=== PATIENT | female | born 2005 | race Caucasian/White ===

== ENCOUNTER 2023-10-06 23:22 | Emergency (ER) | payer BC, SELFPAY ==
--- NOTE | 2023-10-06 | ECG_ITS ---
Test Reason : TACHY Blood Pressure : / mmHG Vent. Rate : 153 BPM Atrial Rate : 153 BPM P-R Int : 114 ms QRS Dur : 094 ms QT Int : 326 ms P-R-T Axes : 041 097 022 degrees QTc Int : 520 ms Sinus tachycardia Rightward axis Nonspecific ST abnormality Abnormal ECG No previous ECGs available Referred By: Generic ED Physician Electronically Signed By:NICOLAS QUICK MD
[2023-10-06 23:23] VITALS: BP 130/89; PULSE 158; RESP 18; TEMP 37.6; O2SAT 97; BMI 29.0
[2023-10-06 23:58] VITALS: BP 133/85; PULSE 140; RESP 18; TEMP 37.2; O2SAT 99
[2023-10-07 00:05] LABS: Monotest Negative (Negative)
--- NOTE | 2023-10-07 00:14 | PC.NURSE ---
Pt aox4 resting at the bedside. Reporting sore throat, chills, and body aches. Sinus tach on monitor with HR as high as 150bpm. Otherwise VSS. Breaths are even regular and unlabored. Skin warm pink and dry. 20G IV line placed on the L AC. Pending lab results and physician eval. Call schrader placed within reach.
[2023-10-07 00:18] LABS: Influenza A PCR NEGATIVE (Negative); Influenza B PCR NEGATIVE (Negative); Resp Syncy Virus RNA Qual PCR NEGATIVE (Negative); SARS COV2 PCR INHOUSE NEGATIVE (Negative)
[2023-10-07 00:28] LABS: IDNOW Serial# 6674DD1D; Strep A Nucleic Acid Negative (Negative)
--- NOTE | 2023-10-07 00:52 | ED_ITS ---
HPI - General Adult General Chief complaint: General Medical Stated complaint: tonsils swollen, diff breathing Time Seen by Provider: 10/07/23 00:16 Source: patient, RN notes reviewed and old records reviewed Mode of arrival: ambulatory Limitations: no limitations History of Present Illness HPI narrative: 18-year-old female presents for evaluation of a sore throat since yesterday. She reports she went to urgent care and was negative for strep, COVID, the flu. She reports fevers today but is unsure exactly how high. She is able to swallow but has painful swallowing. She states that at baseline she has large tonsils Reports that she feels like she has swollen nodes in the right side of her neck Denies any cough, shortness of breath Related Data Previous Rx's Medication Instructions Recorded amoxicillin 875 mg-potassium 1 tab PO Q12H 10 days #20 tabs 10/07/23 clavulanate 125 mg tablet Allergies Allergy/AdvReac Type Severity Reaction Status Date / Time No Known Allergies Allergy Verified 10/06/23 23:33 Review of Systems Constitutional: Constitutional: Denies body ache(s), Reports chills and Reports fever(s) ENT: Reports sore throat Cardiovascular: Cardiovascular: Denies chest pain and Denies dyspnea Respiratory: Respiratory: Denies cough and Denies dyspnea Gastrointestinal: Gastrointestinal: Denies abdominal pain Musculoskeletal: Musculoskeletal: Denies back pain Integumentary/Breasts: Skin/Breast: Denies rash PMFSH Social History Social History Advance Directives: No Advance Directives Information Provided: No Physical Exam ED Vital Signs: Vital Signs - 24 hr 10/06/23 23:23 10/06/23 23:58 Temperature 99.7 F 99.0 F Pulse Rate 158 H 140 H Respiratory Rate 18 18 Blood Pressure 130/89 133/85 Pulse Oximetry 97 99 Oxygen Delivery Method Room Air Room Air BMI result Body Mass Index 29.0 Const General: healthy appearing, comfortable, no acute distress, alert and awake Nutritional Appearance: well nourished Orientation/consciousness: patient oriented x3 HENMT Other: Erythematous oropharynx with bilateral tonsillar hypertrophy and whitish exudates. No evidence of peritonsillar abscess Head: Yes normocephalic and Yes atraumatic Eyes Eyelids: Yes eyelids normal Conjunctivae: conjunctivae normal Sclerae: sclerae normal Corneas: corneas normal Pupils: Equal, round and reactive pupils present EOM: EOMs intact bilaterally Neck Neck: Yes full ROM Resp Effort & Inspection: normal respiratory effort, able to speak in complete sentences and not labored Skin General skin exam: elasticity normal Neuro General: patient oriented x3 Cranial nerves: Yes Equal, round and reactive pupils present and Yes Bilaterally intact EOM present Cognition (Neuro): normal cognition Extrem Other: Moving all extremities well without any obvious deformities Course Reevaluation(s) Reevaluation #1: Patient's heart rate down to 113 after IV fluids. Time: 01:34 Medications Administered Discontinued Medications Generic Name Dose Route Start Last Admin Trade Name Freq PRN Reason Stop Dose Admin Amoxicillin/Clavulanate Potassium 875 mg 10/07/23 00:45 10/07/23 00:53 Amoxicillin/Potassium Clav 875 Mg Tablet PO 10/07/23 00:46 875 mg ONCE ONE Administration Dexamethasone Sodium Phosphate 10 mg 10/07/23 00:27 10/07/23 00:53 Dexamethasone Sod Phosphate 10 Mg/Ml Vial IVPUSH 10/07/23 00:28 10 mg ONCE ONE Administration Sodium Chloride 1,000 mls @ 999 mls/hr 10/07/23 00:30 10/07/23 00:53 Ns IV 10/07/23 01:30 999 mls/hr .Q1H1M TIMOTHY Administration Medical Decision Making Medical Decision Making [facility] Narrative: 18-year-old female presents for evaluation of a sore throat. She clinically has exudative pharyngitis. Her viral swabs, mono screen and strep throat swabs were all negative. However given the degree of tonsillar hypertrophy will still treat with Augmentin. She was given a dose of dexamethasone. She was tachycardic as high as 150 on arrival. This improved with IV fluids. She reports taking ibuprofen 600 mg at 9:30 p.m. therefore we held any further NSAIDs Differential Diagnosis Differential Diagnoses: The differential diagnosis associated with the presentation includes Exudative pharyngitis Mononucleosis Strep pharyngitis Upper respiratory infection Tonsillar abscess Lab Data Labs: Lab Results 10/06/23 10/06/23 10/07/23 Range/Units 23:37 23:45 00:03 Monoscreen Negative (Negative) Influenza Type A (PCR) NEGATIVE (Negative) Influenza Type B (PCR) NEGATIVE (Negative) RSV RNA Qual (PCR) NEGATIVE (Negative) SARS-CoV-2 RNA (RT-PCR) NEGATIVE (Negative) S. pyogenes GrpA ERNIE Negative (Negative) Discharge Plan Discharge Clinical Impression: Exudative pharyngitis Patient Disposition: Home, Self-Care Instructions: Pharyngitis (ED) Additional Instructions: Take Augmentin twice daily for the next 10 days Continue to use ibuprofen/Tylenol for fevers, sore throat Drink lots of fluids Follow-up with your primary doctor and return for new or worsening symptoms Prescriptions: New amoxicillin-pot clavulanate 875-125 mg tablet 1 tab PO Q12H 10 Days Qty: 20 0RF Stand Alone Forms: Work/School Release
[2023-10-07] MEDS: 0.9 % Sodium Chloride 1,000 ML 999 ML IV (00:53)
[2023-10-07] MEDS: Amoxicillin/Potassium Clav 875 MG TABLET PO (00:53)
[2023-10-07] MEDS: dexAMETHasone sod phosphate 10 MG/ML VIAL IVPUSH (00:53)
[2023-10-07 01:50] VITALS: BP 123/84; PULSE 108; RESP 18; O2SAT 98
== END 2023-10-07 01:57 | disposition home or self-care (01) ==
PROVIDERS: Emergency Provider Emergency Medicine
DX: J02.9 Acute pharyngitis, unspecified (principal); R00.0 Tachycardia, unspecified; R06.02 Shortness of breath; R50.9 Fever, unspecified; Z11.52 Encounter for screening for COVID-19; Z20.822 Contact with and (suspected) exposure to COVID-19; Z79.899 Other long term (current) drug therapy
CPT/HCPCS: 0241U; 36415; 86308; 87651; 93005; 96361; 96374; 99284; 99285; J1100

== ENCOUNTER → 2023-10-06 23:33 | Outpatient (BNV) | payer BC, SELFPAY | PROVIDERS: Emergency Provider Emergency Medicine; Visit Provider Internal Medicine Cardiovascular Disease | DX: R00.0 Tachycardia, unspecified (principal) | CPT/HCPCS: 93010 ==